=== PATIENT | female | born 1980 | race Caucasian/White ===

== ENCOUNTER 2019-04-21 18:11 | Emergency (ER) | payer SELFPAY ==
[~2019-04-21] VITALS: Ht 180.3 cm; Wt 186.6 kg
[2019-04-21 18:18] VITALS: BP 151/66; Ht 180.3 cm; Wt 186.6 kg
== END 2019-04-21 18:45 | disposition home or self-care (01) ==
LOC: ED 18:11
DX: J02.9 Acute pharyngitis, unspecified (principal); Z98.890 Other specified postprocedural states
CPT/HCPCS: J1885